=== PATIENT | female | born 1960 | race Caucasian/White ===

== ENCOUNTER → 2024-10-13 12:43 | Outpatient (REF) | payer BC, SELFPAY | LOC: WDC 12:43 | PROVIDERS: ATTENDING PHYSICIAN Advanced Practice Midwife; FAMILY PHYSICIAN Physician Assistant Medical | DX: Z12.31 Encounter for screening mammogram for malignant neoplasm of breast (principal) | CPT/HCPCS: 77063; 77067 ==